=== PATIENT | male | born 1970 | race Caucasian/White ===

== ENCOUNTER 2021-01-18 08:54 | Emergency (ER) | payer OTHER, SELFPAY ==
[2021-01-18 09:07] VITALS: BP 220/118; PULSE 88; RESP 20; TEMP 36.3; O2SAT 100
--- NOTE | 2021-01-18 09:37 | ED.SKABFB ---
HPI - Skin/Abscess/Foreign Bdy General Chief complaint: Skin/Abscess/Foreign Body Stated complaint: Rash Time Seen by Provider: 01/18/21 09:29 Source: patient and RN notes reviewed Mode of arrival: ambulatory Limitations: no limitations History of Present Illness HPI narrative: 50-year-old male presents concern for rash. Reports 3-year history of intermittent itchy rash. Reports he gets red raised itchy areas that change in location, and shape. He denies any trouble breathing, swollen lips, swollen tongue. He denies known triggers. He reports once he tried to take Benadryl, denies any other intervention. He denies any open skin. MD complaint: rash Related Data Home Medications Medication Instructions Recorded Confirmed No Home Medications 01/18/21 01/18/21 Allergies Allergy/AdvReac Type Severity Reaction Status Date / Time hydrocodone Allergy Unknown nightmares Verified 01/18/21 09:39 Review of Systems Review of Systems: CONSTITUTIONAL: Denies malaise, chills, sweats, or fever. EYES: Denies visual changes, redness, or discharge. ENT: Denies rhinorrhea, congestion, swollen lips, swollen tongue CARDIOVASCULAR: Denies chest pain, palpitations, or edema. RESPIRATORY: Denies cough or dyspnea. SKIN: Reports intermittent itchy rash, generalized MUSCULOSKELETAL: Denies back pain, joint pain, or myalgia. NEUROLOGIC: Denies numbness, weakness, or headache. All systems reviewed & are unremarkable except as noted in HPI and below PMFSH Comments At time of signature, agree with nursing past medical, surgical, social and family history. There is no relevant family history pertinent to the presenting complaint Exam Narrative: GENERAL: Well-appearing, well-nourished, and in no acute distress. HEAD: Normocephalic, atraumatic. EYES: PERRLA, conjunctivae clear, and EOMI. ENT: Mucous membranes moist. Oropharynx without edema, erythema or lesions. NECK: Supple. No lymphadenopathy CHEST: Clear to auscultation. No respiratory distress. HEART: Regular rate and rhythm. SKIN: Warm, dry. Scattered patches of erythema and edema consistent with urticaria NEURO: Alert and oriented x3. PSYCH: Normal mood and affect Course Course Emergency Course: Discussed patient's elevated blood pressure and need for follow-up with primary care. Patient reports he will call his primary care doctor today to get an appointment. Patient understands reasons to go to the emergency room if symptoms change. Patient is aware of diagnosis, understands and agrees to treatment plan. Anticipatory guidance given. Patient agrees to follow-up as directed and is aware of reasons to seek care at the emergency department. Portions of this record may have been created with voice recognition software Vital Signs Vital signs: Vital Signs Temperature 97.4 F L 01/18/21 09:07 Pulse Rate 88 01/18/21 09:07 Respiratory Rate 20 01/18/21 09:07 Blood Pressure 220/118 H 01/18/21 09:07 Pulse Oximetry 100 01/18/21 09:07 Temperature 97.4 F L 01/18/21 09:07 Pulse Rate 88 01/18/21 09:07 Respiratory Rate 20 01/18/21 09:07 Blood Pressure 220/118 H 01/18/21 09:07 Pulse Oximetry 100 01/18/21 09:07 Reviewed. Pt has been instructed to follow up with his primary care provider within the next week regarding his elevated blood pressure today. MDM - Skin/Abscess/Foreign Bdy MDM Narrative Medical decision making narrative: Does not appear at this time to be erythema multiforme, bullous, SJS, TEN; no evidence at this time to suggest RMSF, endocarditis or Lyme disease; patient looks well, nontoxic and is tolerating oral intake; no neurologic signs or symptoms; no headache, photophobia or neck pain; afebrile; appropriate for initial outpatient treatment; discussed the importance of follow-up, patient agrees; question, viral exanthema, contact dermatitis, allergic dermatitis, eczema, urticaria. No soft palate or uvula edema, no tongue, lip edema or other mucosal
[2021-01-18 09:43] VITALS: BP 181/117; PULSE 81
== END 2021-01-18 09:43 | disposition home or self-care (01) ==
PROVIDERS: Emergency Provider Nurse Practitioner
DX: L50.9 Urticaria, unspecified (principal); R03.0 Elevated blood-pressure reading, without diagnosis of hypertension
CPT/HCPCS: 99202; G0463

== ENCOUNTER 2023-10-17 12:01 | Emergency (ER) | payer BC, SELFPAY ==
[2023-10-17 12:12] VITALS: BP 190/102; PULSE 94; RESP 20; TEMP 36.5; O2SAT 98
--- NOTE | 2023-10-17 13:10 | ED.ABDPAIN ---
HPI - Abdominal Pain General Chief Complaint: Abdominal Pain Stated Complaint: irratation on right side Source: patient Mode of arrival: ambulatory Limitations: no limitations History of Present Illness HPI narrative: Patient presents for evaluation of right-sided abdominal pain. Symptom onset 3 days ago. Pain is described as a dull ache, rated 1 of 10 severity. He has associated diarrhea. No fever, chills, nausea, vomiting. He consumes approximately 8 drinks of alcohol per day. History of appendectomy. No recent sick exposures. Related Data Home Medications Medication Instructions Recorded Confirmed No Home Medications 01/18/21 01/18/21 Allergies Allergy/AdvReac Type Severity Reaction Status Date / Time hydrocodone Allergy Unknown nightmares Verified 01/18/21 09:39 Review of Systems Review of Systems: CONSTITUTIONAL: Denies fever, chills, or sweats. EYES: Denies visual changes, redness, or discharge. ENT: Denies rhinorrhea, congestion, sore throat, or otalgia. CARDIOVASCULAR: Denies chest pain, palpitations, or edema. RESPIRATORY: Denies cough or dyspnea. GASTROINTESTINAL: Reports abdominal pain and diarrhea. Denies nausea and vomiting GENITOURINARY: Denies dysuria or hematuria. SKIN: Denies rash or itching. MUSCULOSKELETAL: Denies back pain, joint pain, or myalgia. NEUROLOGIC: Denies headache, numbness, dizziness, or weakness. PSYCHIATRIC: Denies anxiety or depression. [facility] Past Medical History Medical History No pertinent past medical history Surgical History Surgical History History of appendectomy Family History Family History Mother Family history non-contributory Social History Social History Smoking packs per day: 1 Smoking cigarettes per day: 20.0 Smoking status: Current every day smoker Alcohol intake: current Drinks per week: 56 Substance use: current Substance use type: marijuana Living arrangements: with family Gender identity (if verbalized by the patient): Male Sexual Orientation (if Verbalized by the Patient): Straight or Heterosexual Spiritual care concerns: No Exam Narrative: GENERAL: Well-appearing, well-nourished, and in no acute distress. HEAD: Normocephalic, atraumatic. EYES: PERRLA and EOMI. ENT: Nares clear, no rhinorrhea or epistaxis. Mucous membranes moist. Oropharynx without tonsillar hypertrophy exudate or other lesions. Bilateral TMs pearly feltcher nonbulging NECK: Supple. No adenopathy or masses. No carotid bruits or JVD CHEST: Clear to auscultation. No respiratory distress. No wheezes rales or rhonchi HEART: Regular rate and rhythm. No murmur heard. Normal peripheral pulses. ABDOMEN: Soft, nontender, nondistended, normal active bowel sounds. EXTREMITIES: Normal range of motion. No edema. SKIN: Ready appearance. Warm, dry, no rash. NEURO: No focal deficits. Alert and oriented x3. PSYCH: Normal mood and affect. Course Course Emergency Course: This is a 53-year-old male who presented for evaluation of abdominal pain and diarrhea. Given his history of alcohol abuse, would likely be in his best interest to obtain labs and potential CT scan. I recommended he be transferred to the hospital for further evaluation. Patient is agreeable to this plan. Contacted [facility], patient's facility of choice and spoke with physician accounts receivable assistant, Chloe Barrett. She indicates that Dr Morales will accept pt to the Dept there. Patient transferred via private vehicle Level of Care: Express Care Visit Vital Signs Vital signs: Vital Signs Temperature 36.5 C 10/17/23 12:12 Pulse Rate 94 10/17/23 12:12 Respiratory Rate 20 10/17/23 12:12 Blood Pressure 190/102 H 10/17/23 12:12 Pulse
== END 2023-10-17 13:12 | disposition short-term general hospital (02) ==
PROVIDERS: Emergency Provider Nurse Practitioner; PCP Internal Medicine
DX: R10.9 Unspecified abdominal pain (principal); F17.210 Nicotine dependence, cigarettes, uncomplicated; F12.90 Cannabis use, unspecified, uncomplicated
CPT/HCPCS: 99212; G0463

== ENCOUNTER 2024-02-12 12:45 | Emergency (ER) | payer BC, SELFPAY ==
--- NOTE | ~2024-02-12 | XR_ITS ---
XR chest 2V Ordering provider: Trish Buchanan NP History: 53 years Male with . covid +, wheezing and coarse . Comparison: None. FINDINGS: MEDIASTINUM: The cardiac silhouette is not enlarged. LUNGS: No infiltrates, effusions or pneumothorax. OTHER: No free air under the diaphragm. IMPRESSION: No acute cardiopulmonary pathology. Reviewed, dictated and finalized at location [facility]
[2024-02-12 12:54] VITALS: BP 147/111; PULSE 105; RESP 20; TEMP 36.7; O2SAT 97
--- NOTE | 2024-02-12 13:13 | ED.URI ---
HPI - URI/Sore Throat General Chief Complaint: Upper Respiratory Infection Stated Complaint: sinus/respiratory/covid positive Time Seen by Provider: 02/12/24 13:13 Source: patient Mode of arrival: ambulatory Limitations: no limitations History of Present Illness HPI Narrative: 53-year-old male presents with complaint cough, chest congestion, fatigue, shortness of breath with exertion for the past 4-5 days. Patient tested himself for COVID last night and it was positive. Patient needs work note stating he is COVID positive and to excuse him from work. Patient is not taking any hves-trm-rfigcuz medications to treat his symptoms. Is a current every day smoker. All systems reviewed and negative except as noted above. Related Data Allergies Allergy/AdvReac Type Severity Reaction Status Date / Time hydrocodone Allergy Unknown nightmares Verified 01/18/21 09:39 Review of Systems Review of Systems: CONSTITUTIONAL: Denies fever, chills, or sweats. reports fatigue. EYES: Denies visual changes, redness, or discharge. ENT: reports rhinorrhea, congestion . Denies sore throat, or otalgia. CARDIOVASCULAR: Denies chest pain, palpitations, or edema. RESPIRATORY: Reports cough and dyspnea with exertion. GASTROINTESTINAL: Denies abdominal pain, nausea, vomiting, or diarrhea. GENITOURINARY: Denies dysuria or hematuria. SKIN: Denies rash or itching. MUSCULOSKELETAL: Denies back pain, joint pain, or myalgia. NEUROLOGIC: Denies headache, numbness, or weakness. PSYCHIATRIC: Denies anxiety or depression. All other systems reviewed are negative, except as documented in HPI. [facility] Past Medical History Medical History No pertinent past medical history Surgical History Surgical History History of appendectomy Family History Family History Mother Family history non-contributory Social History Social History Smoking packs per day: 1 Smoking cigarettes per day: 20.0 Smoking status: Current every day smoker Alcohol intake: current Drinks per week: 56 Substance use: current Substance use type: marijuana Living arrangements: with family Gender identity (if verbalized by the patient): Male Sexual Orientation (if Verbalized by the Patient): Straight or Heterosexual Spiritual care concerns: No Comments At time of signature, agree with nursing past medical, surgical, social and family history. There is no relevant family history pertinent to the presenting complaint. Exam Narrative: GENERAL: This is a well-nourished, well-developed patient, in no apparent distress. HEAD: normocephalic, atraumatic. EYES: PERRL. Sclera clear/white. Vision is grossly intact. EARS: External ears normal, auditory canals clear and without drainage, TMs normal without perforation. Hearing grossly intact. NOSE: External nose normal with purulent nasal drainage, moderate congestion, erythema and swelling to bilateral nares THROAT: Mucous membranes moist, erythema with postnasal drainage NECK: Neck supple, non-tender without lymphadenopathy, masses or thyromegaly. CARDIOVASCULAR: Regular rate and rhythm without murmurs, gallops, or rubs. RESPIRATORY: coarse throughout all lung shaw. Breath sounds equal bilaterally. No wheezes, rales, or rhonchi. SKIN: warm, Dry, intact with no suspicious lesions or rash, good texture and turgor. NEURO: awake, alert, and oriented to person, place and time. There were no obvious focal neurologic abnormalities. EXTREMITIES: No joint tenderness, effusion, or edema noted. Course Course Level of Care: Express Care Visit Vital Signs Vital signs: Vital Signs Temperature 36.7 C 02/12/24 12:54 Pulse Rate 105 H 02/12/24 12:54 Respiratory Rate 20 02/12/24 12:54 Blood Pressure 147/111 H 02/12/24 12:54 Pulse Oximetry 97 02/12/24 12:54 Oxygen Delivery Room Air 02/12/24 12:54 Temperature 36.7 C 02/12/24 12:54 Pulse Rate 79 02/12/24 13:17 Respiratory Rate 20 02/12/24 13:17 Blood Pressure 147/111 H 02/12/24 12:54 Pulse Oximetry 95 02/12/24 13:17 Oxygen Delivery Room Air 02/12/24 12:54 Reviewed MDM - URI/Sore Throat MDM Narrative Medical decision making narrative: chest x-ray negative for pneumonia. Continues to have mildly coarse lung sounds throughout all lung shaw after albuterol treatment. Discharging patient with paxlovid, prednisone, albuterol. Nontoxic, no respiratory distress. Recommend he go to the ER for any worsening of symptoms. Patient is aware of diagnosis, understands and agrees to treatment plan. Anticipatory guidance given. Patient agrees to follow-up as directed and is aware of reasons to seek care at the emergency department. Portions of this record may have been created with voice recognition software Imaging Data My impression: agree with radiologist Radiologist's impression: XR chest 2V Ordering provider: Trish Buchanan NP History: 53 years Male with . covid +, wheezing and coarse . Comparison: None. FINDINGS: MEDIASTINUM: The cardiac silhouette is not enlarged. LUNGS: No infiltrates, effusions or pneumothorax. OTHER: No free air under the diaphragm. IMPRESSION: No acute cardiopulmonary pathology. Discharge Plan Discharge Clinical Impression: COVID-19, Elevated blood pressure reading Patient Disposition: Home, Self-Care Condition: Stable Instructions: COVID-19 (Coronavirus Disease 2019) (ED) Additional Instructions: your chest x-ray was negative for pneumonia. COVID is a virus and symptoms may last 10-14 days. Take medications as prescribed. Take rlvu-wfw-osykyjr Mucinex as directed on packaging. Drink at least 64 oz of water A day. Your blood pressure was elevated today. Follow-up with your primary care physician in 1 week. For any worsening of your symptoms go to the ER. Prescriptions: New (DME) Aerochamber Plus Z Stat Spacer See Rx Instructions .Route Qty: 1 0RF Rx Instructions: As directed benzonatate 200 mg capsule 200 mg PO TID PRN (Reason: cough) Qty: 20 0RF albuterol sulfate 90 mcg/actuation HFA aerosol inhaler 2 puff inhalation Q4-6H PRN (Reason: shortness of breath or wheezing) Qty: 8.5 0RF prednisone 20 mg tablet 40 mg PO DAILY 5 Days Qty: 10 0RF Paxlovid 300 mg (150 mg x 2)-100 mg tablets,dose pack See Rx Instructions .ROUTE .COMPLEX Qty: 30 0RF Rx Instructions: take TWO 150 mg tablets of nirmatrelvir with ONE 100 mg tablet of ritonavir twice daily for 5 days Follow-up/Referrals: Carlo,Ravi Irving MD [Primary Care Provider] - 1 Week Stand Alone Forms: Work/School Release IP Time of Disposition: 13:52
[2024-02-12 13:17] VITALS: PULSE 79; RESP 20; O2SAT 95
[2024-02-12] MEDS: ALBUTEROL SULFATE NEB 2.5 MG/3 ML INH INHALATION (13:32)
[2024-02-12] MEDS: predniSONE 20 MG TABLET 40 MG PO (13:33)
== END 2024-02-12 14:00 | disposition home or self-care (01) ==
PROVIDERS: Emergency Provider Nurse Practitioner Family; PCP Internal Medicine
DX: U07.1 COVID-19 (principal); R03.0 Elevated blood-pressure reading, without diagnosis of hypertension; F17.210 Nicotine dependence, cigarettes, uncomplicated; F12.90 Cannabis use, unspecified, uncomplicated
CPT/HCPCS: 71046; 94640; 99213; G0463; J7512

== ENCOUNTER 2025-02-03 10:01 | Emergency (ER) | payer BC, SELFPAY ==
[2025-02-03 10:06] VITALS: BP 162/116; PULSE 98; RESP 20; TEMP 36.7; O2SAT 97
--- NOTE | 2025-02-03 10:33 | ED_ITS ---
HPI - URI/Sore Throat General Chief Complaint: Upper Respiratory Infection Stated Complaint: Sore Throat/Cough Time Seen by Provider: 02/03/25 10:33 Source: patient, RN notes reviewed and old records reviewed Mode of arrival: ambulatory Limitations: no limitations History of Present Illness HPI Narrative: 54 year old male presents to [facility] with complaints of 10 day history of dry and productive cough with expectoration of greenish phlegm, nasal congestion and drainage some sore throat with symptoms progressively worsening over the past few days. 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 Patient is daily tobacco smoker. MD elicited complaint: cough, sore throat, rhinorrhea and nasal congestion Pertinent past history: pneumonia and other (tobacco abuse) Onset (ago): day(s) (10 days) Consistency: progressively worsening Severity: moderate Description of mucous: green Able to tolerate fluids by mouth: Yes Treatments prior to arrival: none Related Data Allergies Allergy/AdvReac Type Severity Reaction Status Date / Time hydrocodone Allergy Unknown nightmares Verified 02/03/25 10:10 Review of Systems Review of Systems: CONSTITUTIONAL: Reports malaise, chills, sweats, unknown if fever. EYES: Denies visual changes, redness, or discharge. ENT: Reports rhinorrhea, congestion, sinus pain, no otalgia and +sore throat. CARDIOVASCULAR: Denies chest pain, palpitations, or edema. RESPIRATORY: Reports dry and productive cough.? Denies dyspnea. GASTROINTESTINAL: Denies abdominal pain, nausea, vomiting, diarrhea SKIN: Denies rash or itching. MUSCULOSKELETAL: Reports myalgia. NEUROLOGIC: Reports some headache. All systems reviewed & are unremarkable except as noted in HPI and below PMFSH Past Medical History Medical History Pneumonia reports [employer] Tobacco abuse Hypertension not compliant with meds Surgical History Surgical History History of orthopedic surgery ORIF left lower leg with hardware History of appendectomy Family History Family History Mother Family history non-contributory Social History Social History (Updated 02/04/25 @ 09:55 by Sara Au APRN) Smoking packs per day: 1 Smoking cigarettes per day: 20.0 Smoking status: Current every day smoker Alcohol intake: current Drinks per week: 56 Alcohol use details: daily Substance use: current Substance use type: marijuana Living arrangements: with family Gender identity (if verbalized by the patient): Male Sexual Orientation (if Verbalized by the Patient): Straight or Heterosexual Spiritual care concerns: No Comments At time of signature, agree with nursing past medical, surgical, social and family history. There is no relevant family history pertinent to the presenting complaint Exam Narrative: GENERAL:Ill-appearing, well-nourished, and in no acute distress. HEAD: Normocephalic EYES: PERRLA, conjunctivae clear ENT: Nares clear, turbinates edematous and erythematous, clear to greenish discharge. Mucous membranes moist. TM pearly fletcher with dull light reflex bilaterally; no tragal tenderness. Oropharynx erythematous without lesions. Tonsils not enlarged and without exudate, no drooling, no hoarseness, no trismus, uvula midline.post nasal drainage NECK: Supple. No lymphadenopathy CHEST: Clear decreased to auscultation, breath sounds equal. No wheezing, rhonchi, rales, or stridor. No respiratory distress, speaks in full sentences. productive cough green mucous,, SAO2 97% on room air HEART: Regular rate and rhythm. No murmur heard. SKIN: Warm, dry, no rash. NEURO: Alert and oriented x3. PSYCH: Normal mood and affect Course Course Emergency Course: Patient is aware of diagnosis, understands and agrees to treatment plan.? Anticipatory guidance given.? Patient agrees to follow-up as directed and is aware of reasons to seek care at the emergency department. Portions of this record may have been created with voice recognition software Level of Care: Express Care Visit Vital Signs Vital signs: Vital Signs Temperature 36.7 C 02/03/25 10:06 Pulse Rate 98 02/03/25 10:06 Respiratory Rate 20 02/03/25 10:06 Blood Pressure 162/116 H 02/03/25 10:06 Pulse Oximetry 97 02/03/25 10:06 Oxygen Delivery Room Air 02/03/25 10:06 Temperature 36.7 C 02/03/25 10:06 Pulse Rate 98 02/03/25 10:06 Respiratory Rate 20 02/03/25 10:06 Blood Pressure 162/116 H 02/03/25 10:06 Pulse Oximetry 97 02/03/25 10:06 Oxygen Delivery Room Air 02/03/25 10:06 Reviewed MDM - URI/Sore Throat MDM Narrative Medical decision making narrative: Differential diagnosis considered: Carbone virus, strep pharyngitis, allergic rhinitis, upper respiratory tract infection, sinusitis, rhinosinusitis, na sopharyngitis. viral pharyngitis, otitis media, otitis externa, pneumonia, bronchitis, viral cough syndrome, viral syndrome, and influenza.? Exam findings show no acute concerns or changes; patient is non-toxic appearing and is in no distress.? Patient is appropriate for outpatient treatment and follow-up. Differential Diagnosis Differential diagnosis: Likely upper respiratory infection, sinusitis, viral infection, influenza, pharyngitis and other (strep pharyngitis, COVID) Medical Records Attestation: I reviewed the patient's medical records. Lab Data Attestation: I reviewed the patient's lab results. Lab results narrative: strep negative, culture sent, COVID antigen negative, Influenza A&B negative Labs: Lab Results 02/03/25 Range/Units 10:36 POC Influenza A Ag Negative (Negative) POC Influenza B Ag Negative (Negative) POC SARS CoV-2 Ag Negative (Negative) POC Grp A Strep Screen Negative (Negative) reviewed Critical Care Time Critical Care Time Critical Care Time: No Discharge Plan Discharge Clinical Impression: Sinusitis Qualifiers: Sinusitis location: pansinusitis Chronicity: acute Recurrence: not specified as recurrent Qualified Code(s): J01.40 - Acute pansinusitis, unspecified Cough Qualifiers: Cough type: acute Qualified Code(s): R05.1 - Acute cough Patient Disposition: Home Condition: Stable Instructions: Antibiotic Form, Sinusitis (ED), Acute Cough (ED) Additional Instructions: Increase fluids especially juices and water Ophw-bya-kibkdua cough and cold medicine of your choice for your symptoms Zyrtec Claritin or Chloe daily include Coricidin brand decongestant due to elevation of blood pressure Continue your inhaler/nebulizer as directed Steroids as directed--take with food heat to the face 20-30 minutes 4-6 times a day for pain Salt water gargles, throat lozenges or throat sprays as desired Antibiotic as directed--finished the medication take antibiotic with food and either eat Activia yogurt or take probiotic while taking this medication If your symptoms persist, change or worsen significantly before you can contact your personal physician then please, without delay, go to the emergency department for further evaluation. Follow-up with PCP in 7-10 days or sooner if needed Follow up with PCP soon in regards to your blood pressure which is elevated above threshold for referral. Blood pressure above 120/80 may indicate pre- hypertension. 162/116 is noncompliant with any medication that was ordered for him in the past. Stressed importance of taking blood pressure medication Patient Language: Stateless Prescriptions: New amoxicillin-pot clavulanate 875-125 mg tablet 1 tablet PO Q12H Qty: 20 0RF prednisone 20 mg tablet 40 mg PO DAILY 5 Days Qty: 10 0RF Rx Instructions: take with food and take in the morning No Action (DME) Aerochamber Plus Z Stat Spacer See Rx Instructions .Route Qty: 1 0RF Rx Instructions: As directed albuterol sulfate 90 mcg/actuation HFA aerosol inhaler 2 puff inhalation Q4-6H PRN (Reason: shortness of breath or wheezing) Qty: 8.5 0RF Follow-up/Referrals: Carlo,Ravi Irving MD [Primary Care Provider] Stand Alone Forms: Work/School Release IP Time of Disposition: 10:47 Quality Oh Coma Scale Eyes: Open Verbal: Oriented and Alert Motor: Follows Commands Oh Coma Total Score: 15
[2025-02-03 10:45] LABS: EDCOVIDSCREEN Negative (Negative); EDINFLUASCREEN Negative (Negative); EDINFLUBSCREEN Negative (Negative); EDSTREPNEGPOS1 Negative (Negative)
--- OUTSIDE RECORDS SUMMARY | 2025-02-03 11:08 | XMS_ITS | Encounter Summary ---
Author Organization [facility] Address 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
--- OUTSIDE RECORDS SUMMARY | 2025-02-03 11:08 | XMS_ITS | Clinical Summary ---
Author Organization [facility] Address [address] [place] [address] Phone Care Team Providers Care Senior Investigator Name Role Phone Ravi Matos MD Primary Care Provider [phone] Allergies No known active allergies Medications gabapentin (NEURONTIN) 100 MG Capsule Take 200 mg p.o. q.p.m., 100 mg q.a.m. and 100 mg at lunch. 90 Capsule 10/17/2023 Active Active Problems Problem Noted Date Diagnosed Date Anxiety 01/03/2022 Hypertension 01/03/2022 Tobacco dependence syndrome 01/03/2022 Resolved Problems Problem Noted Date Diagnosed Date Resolved Date Pneumonia, unspecified organism 01/04/2022 01/05/2022 CAP (community acquired pneumonia) 01/03/2022 01/05/2022 Dehydration 01/03/2022 01/05/2022 Hypochloremia 01/03/2022 01/05/2022 Hyponatremia 01/03/2022 01/05/2022 Hypokalemia 01/03/2022 01/05/2022 Sepsis 01/03/2022 01/05/2022 Family History Medical History Relation Name Comments No Known Problems Daughter 1 No Known Problems Daughter 2 No Known Problems Daughter 3 No Known Problems Father No Known Problems Mother Relation Name Status Comments Daughter 1 Alive Daughter 2 Alive Daughter 3 Alive Father Alive Maternal Grandfather Maternal Grandmother Mother Alive Paternal Grandfather Paternal Grandmother Sister Alive Social History Tobacco Use Types Packs/Day Years Used Date Smoking Tobacco: Every Day Cigarettes 0.5 35 Smokeless Tobacco: Never Tobacco Cessation:Ready to Q uit: Not Asked; Counseling Given: Not Answered Comments:taking chantix Alcohol Use Standard Drinks/Week Comments Yes 4 (1 standard drink = 0.6 oz pur e alcohol) Sex and Gender Information Value Date Recorded Sex Assigned at Not on file Legal Sex Male 9:25 PM CDT Gender Identity Not on file Sexual Orientation Not on file Last Filed Vital Signs Vital Sign Reading Time Taken Comments Blood Pressure 182/124 10/17/2023 5:30 PM CDT Pulse 93 10/17/2023 6:45 PM CDT Temperature 36.6 C (97.8 F) 10/17/2023 1:58 PM CDT Respiratory Rate 16 10/17/2023 6:45 PM CDT Oxygen Saturation 97% 10/17/2023 6:45 PM CDT Inhaled Oxygen Concentration - - Weight 72.6 kg (160 lb) 10/17/2023 1:58 PM CDT Height 167.6 cm (5' 6) 10/17/2023 1:58 PM CDT Body Mass Index 25.82 10/17/2023 1:58 PM CDT Plan of Treatment Health Maintenance Due Date Last Done Comments Hepatitis C Virus (HCV) Screening 1970 Hepatitis B Immunization (1 of 3 - 19+ 3-dose series) 1989 Pneumococcal Immunization (5 0+ years) (1 of 2 - PCV) 1989 Cologuard 09/15/2015 Colonoscopy 09/15/2015 Colorectal Cancer Screening 09/15/2015 Immunochemical Fecal Occult Blood 09/15/2015 Zoster Immunization (1 of 2) 2020 Influenza Immunization (#1) 11/04/202401/04, 01/16/2013 SARS-COV-2 Immunization ( season) 2024 Respiratory Syncytial Virus (RSV) Immunization (Adult) (1 - 1-dose 75+ series) 2045 DTaP/Tdap/Td Immunization Discontinued 2020, 11/01/2010 TdaP Immunization Completed 01/19/2021, 11/01/2010 Human Papillomavirus (HPV) Immunization Aged Out No longer eligible based on patient's age to complete this topic Meningococcal Immunization (ACWY) Aged Out No longer eligible based on patient's age to complete this topic Rotavirus Immunization Aged Out No lo nger eligible based on patient's age to complete this topic Insurance [employer] Advance Directives * Full Code (Latest Code Status on File) Date Activated Date Inactivated Comments 01/03/2022 6:47 PM 01/05/2022 3:42 PM CPR-Full Tr eatment: FULL ARREST: Attempt Resuscitation/CPR wit intubation and mechanical ventilation. PRE-ARREST: Use entire range of life support measures to stabilize the patient. Care Teams Senior Investigator Relationship Specialty Start Date End Date Ravi Matos MD [address] [place] [id number] PCP - General 01/03/22
--- OUTSIDE RECORDS SUMMARY | 2025-02-03 11:09 | XMS_ITS | Clinical Summary ---
Author Organization [facility] Address [address] [place] [address] Care Team Providers Care Baccarat Manager Name Role Phone Ravi Matos MD Primary Care Provider [phone] Allergies Active Allergy Reactions Criticality Noted Date Comments No Known Allergies 05/30/2005 Medications tadalafil (CIALIS) 5 mg tablet Take 1 Tablet (5 mg) by mouth 1 time daily as needed for Erectile Dysfunction. 30 Tablet 6 2 Active losartan (COZAAR) 50 mg tabletIndications :Accelerated hypertension Take 1 Tablet (50 mg) by mouth daily. 90 Tablet 3 2 Active hydrOXYzine HCL (ATARAX) 10 mg tabletIndications :Chronic idiopathic urticaria Take 1 Tablet (10 mg) by mouth 3 times daily as needed for Itching. 30 Tablet 3 2 Active varenicline (CHANTIX) 1 mg TabletIndications :Tobacco abuse Take 1 Tablet (1 mg) by mouth 2 times daily. 120 Tablet 1 2 Active amLODIPine (NORVASC) 5 mg tabletIndications :Accelerated hypertension Take 1 Tablet (5 mg) by mouth daily. 90 Tablet 1 3 Active methylPREDNISolon e (MEDROL DOSPACK) 4 mg Tablets, Dose Pack As directed 21 Tablet 3 3 Active Active Problems Patient Care Coordination No te Formatting of this note migh t be different from the original. Prev visit 01/24 Problem Noted Date Diagnosed Date Elevated plasma metanephrines 04/21/2021 Accelerated hypertension 01/19/2021 Tobacco abuse 01/19/2021 Hives 01/19/2021 Resolved Problems Problem Noted Date Diagnosed Date Resolved Date Legionella pneumonia 01/20/2022 022 Overview (01/20/2022): History legionella positive in urine on 01/03/22 Negative in urine on 01/04 Adjustment reaction 11/01/2010 01/20/20 21 Acute sinusitis, unspecified 05/30/2005 11/01/2010 Immunizations Immunization Administration Dates Next Due (ADACEL/BOOSTRIX)(10 YR UP) TDAP VACCINE, 0.5ML, IM 01/19/2021,11/01/2010 Influenza Seasonal Unspecified Formulation IM ,01/16/2013 Family History Medical History Relation Name Comments Healthy Father Healthy Mother Relation Name Status Comments Daughter 1 Alive Daughter 2 Alive Daughter 3 Alive Father Alive Maternal Grandfather Maternal Grandmother Alive Mother Alive Paternal Grandfather Paternal Grandmother Sister Alive Social History Tobacco Use Types Packs/Day Years Used Date Smoking Tobacco: Every Day Cigarettes 0.5 35 Smokeless Tobacco: Never Tobacco Cessation:Ready to Q uit: Not Asked; Counseling Given: Not Answered Alcohol Use Standard Drinks/Week Comments Yes 2.5 (1 standard drink = 0.6 oz p ure alcohol) Sex and Gender Information Value Date Recorded Sex Assigned at Not on file 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 Gender Identity Not on file Sexual Orientation Not on file Last Filed Vital Signs Vital Sign Reading Time Taken Comments Blood Pressure 140/78 01/04/2023 2:22 PM CDT Pulse 88 01/04/2023 2:22 PM CDT Temperature 36.6 C (97.9 F) 01/04/2023 2:22 PM CDT Respiratory Rate 16 01/04/2023 2:22 PM CDT Oxygen Saturation 98% 01/04/2023 2:22 PM CDT Inhaled Oxygen Concentration - - Weight 73.5 kg (162 lb) 01/04/2023 2:22 PM CDT Height 170.2 cm (5' 7) 01/04/2023 2:22 PM CDT Body Mass Index 25.37 01/04/2023 2:22 PM CDT Plan of Treatment Health Maintenance Due Date Last Done Comments HEPATITIS B VACCINES (1 of 3 - 19+ 3-dose series) 1989 COLORECTAL SCREENING 09/15/2015 Colorectal Cancer Screening 09/15/2015 FIT-DNA Q 3 years 09/15/2015 FIT/FOBT Q 1 year 09/15/2015 Flex Sig/CT Colonography Q 5 years 09/15/2015 ZOSTER VACCINE (1 of 2) 2020 Preventative Visit- Commercial 03/06/2024 1 03/21/2020, 04/30/2014, 03/23/2012, Additional history exists INFLUENZA VACCINE (#1) 2024 01/18/2014, 2012 DTAP/TDAP/TD VACCINES (3 - T d or Tdap) 01/19/2031 01/19/2021, 11/01/2010 Insurance [facility] [id number] Care Teams Baccarat Manager Relationship Specialty Start Date End Date Ravi Matos MD PCP - General Internal Medicine 10/25/10
--- OUTSIDE RECORDS SUMMARY | 2025-02-03 11:09 | XMS_ITS | Encounter Summary ---
Author Organization [facility] Address 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 Patient complains of sinus congestion, cough. * Ravi Matos MD - 12/13/2007 7:29 PM CDT WEIGHT: 142lbs BLOOD PRESSURE: 110/70 Right Arm Sitting TEMPERATURE: 36.33??c Oral HEIGHT: 5ft7in NURSE NAME: Amita Bowers Trevor CHIEF COMPLAINT Patient complains of sinus congestion, cough. HISTORY: 1 week sinus ROS: GENERAL: Normal activity and energy level, no change in appetite. No major weight gain or loss. No malaise, chills, fever, diaphoresis. ALLERGIC/IMMUNOLOGIC: No hay fever or history of environmental allergies. No chronic problems with immunity. EYES: No vision changes or diplopia. ENT: NASAL CONGESTION PRESENT, COMPLAINS OF HOARSENESS, COMPLAINS OF A SORE THROAT. ENDOCRINE: No heat or cold intolerance, no excessive thirst. CARDIAC: No chest pain, palpitations, orthopnea, dyspnea on exertion, or paroxysmal nocturnal dyspnea. RESPIRATORY: HAS BRONCHITIS, HAS A COUGH. SKIN/BREAST/CHEST: No rashes or non-healing lesions. No breast symptoms noted. HEMATOLOGIC/LYMPHATIC: No anemia, easy bruising, bleeding or swollen nodes. : No dysuria or hematuria. GI: No abdominal pain, nausea, vomiting, diarrhea, constipation, melena, or hematochezia. NEUROLOGIC: No weakness, dizziness, loss of consciousness, transient ischemic symptoms, or seizures. MUSCULOSKELETAL: No muscle or joint pain, weakness, swelling or inflammation. No restriction of motion, no atrophy or backache. PSYCHIATRIC: No increased nervousness, mood changes or depression. Coping well. PAST MEDICAL HISTORY: MEDICAL: No significant history of medical diseases. SURGICAL: Appendectomy. 2004 CURRENT MEDICATIONS: Patient is currently on no medication. ALLERGIES/ADVERSE REACTIONS: No known drug allergies. FAMILY HISTORY: FATHER: The father's health status is unknown. MOTHER: The mother is living. Back problems & surgery SIBLINGS: One sibling. Healthy. SOCIAL HISTORY: MARITAL HISTORY: , living with spouse. LIVING WILL: The patient does not have a living will. TOBACCO USE: Has smoked for 10 to 15 years. OCCUPATION: [employer] ALCOHOL: Does not give any significant history of alcohol usage. CAFFEINE: A minimal amount of caffeinated beverages daily. EXERCISES: The patient is not exercising regularly. DIET: Follows no specific diet. SAFETY ISSUES: Uses seat belts. PHYSICAL EXAMINATION: EARS, NOSE, MOUTH AND THROAT: EARS: EFFUSION PRESENT BILATERALLY. ORAL: OROPHARYNX ERYTHEMATOUS. NECK/THYROID: Trachea midline. No thyroid enlargement, tenderness, or mass. No supraclavicular or cervical adenopathy. RESPIRATORY: Clear to auscultation and percussion. Normal respiratory effort. CARDIOVASCULAR: CARDIAC: Regular rhythm. No murmurs, rubs, or gallops. EDEMA/VARICOSITIES OF EXTREMITIES: No edema or varicosities. GASTROINTESTINAL: ABDOMEN: Soft, non-tender, without masses. Bowel sounds active. LIVER/SPLEEN/KIDNEY: No hepatosplenomegaly, tenderness or nodularity. Kidneys not palpable. ASSESSMENT/PLAN: 461.9-SINUSITIS UNSPECIFIED MEDICATIONS: LEVAQUIN LEVA-JOE ORAL TABLET 750 MG, 1 Every Day, 5 Dispensed, status: NEW PRESCRIPTION, 05/30/2005. NASONEX NASAL SUSPENSION 50 MCG/ACT, 2 Every Morning, 2 Dispensed, status: NEW PRESCRIPTION, 05/30/2005. PREVENTIVE COUNSELING The patient was counseled regarding diet, smoking cessation. rec chol check RETURN VISIT : Instructed to call if not improving.Note for off today and tomorrow Electronically Signed by: Ravi Matos MD on Monday, May 30, 2005 documented in this encounter Plan of Treatment Not on file documented as of this encounter Visit Diagnoses Not on filedocumented in this encounter Care Teams Stock Patcher Relationship Specialty Start Date End Date Ravi Matos MD PCP - General Internal Medicine 10/25/10 documented as of this encounter
== END 2025-02-03 10:55 | disposition home or self-care (01) ==
PROVIDERS: Emergency Provider Registered Nurse; PCP Internal Medicine
DX: J01.40 Acute pansinusitis, unspecified (principal); R05.1 Acute cough; Z20.822 Contact with and (suspected) exposure to COVID-19; F17.210 Nicotine dependence, cigarettes, uncomplicated; F12.90 Cannabis use, unspecified, uncomplicated; I10 Essential (primary) hypertension; Z91.148 Patient's other noncompliance with medication regimen for other reason
CPT/HCPCS: 87081; 87426; 87804; 87880; 99213; G0463